=== PATIENT | male | born 1970 | race Caucasian/White ===

== ENCOUNTER 2016-09-03 05:37 | Day surgery (SDC) | payer BC ==
[2016-08-28 16:22] VITALS: BMI 23.5
--- NOTE | 2016-09-03 09:23 | HP ---
Satellite [facility] - Chief Complaint Chief Complaint: left knee pain - Past Medical History Allergies/Adverse Reactions: Allergies Allergy/AdvReac Type Severity Reaction Status Date / Time No Known Allergies Allergy Verified 08/28/16 16:22 - Current Medications Current Medications: Home Medications Medication Instructions Recorded Amoxicillin/Potassium Clav 875 mg PO BID 08/28/16 [Amox-Clav 875-125 mg Tablet] Losartan Potassium 25 mg PO DAILY 08/28/16 Pantoprazole Sodium 40 mg PO HS 08/28/16 Oxycodone HCl/Acetaminophen 1 - 2 tab PO Q6H #50 tab MDD 8 09/03/16 [Percocet 5-325 mg Tablet -] Satellite Physical Exam - Physical Examination General Appearance: Well Nourished, Well Developed, Alert & Oriented x3 ENT: Clear Lung: Normal air movement Heart: Regular rate & rhythm Extremities: Other (left knee- + swelling, + ttp, decr rom, + mcmurrays, + apleys, nvi MRi + LMT) Neurological: Intact, Alert, Oriented Satellite Impression/Plan - Impression/Plan Impression: left knee internal derangement Operative Procedure: left knee arthroscopy Date to be Performed: 09/03/16
[2016-09-03] MEDS ORDERED: LIDOCAINE 1%/EPI 1:100000 (50 ML MULTI DOSE VIAL) ONE (11:59)
[2016-09-03] MEDS ORDERED: BUPIVACAINE HCL/PF 0.5% (5MG/ML) 10 ML VIAL ONE (12:00)
[2016-09-03] MEDS ORDERED: MIDAZOLAM HCL 2 MG/2 ML SINGLE DOSE VIAL ONE (12:19)
[2016-09-03] MEDS ORDERED: PROPOFOL 20 ML ONE (12:19)
[2016-09-03] MEDS ORDERED: KETOROLAC TROMETHAMINE 30 MG/1 ML VIAL ONE (12:42)
[2016-09-03] MEDS ORDERED: DEXAMETHASONE SOD PHOSPHATE 4 MG/1 ML VIAL ONE (12:42)
--- NOTE | 2016-09-03 12:47 | OP ---
Operative Note - Note: Operative Date: 09/03/16 ([facility]) Pre-Operative Diagnosis: left knee internal derangement Operation: left knee arthroscopy with PLM Post-Operative Diagnosis: Same as Pre-op Surgeon: Alejandro Cali Anesthesiologist/EDUCATION PROGRAM ASSOCIATE: Vincent Armas Anesthesia: General, Local Specimens Removed: shavings Estimated Blood Loss (mls): 5 Operative Report Dictated: Yes
[2016-09-03] MEDS ORDERED: LIDOCAINE 1%/EPI 1:100000 (20 ML MULTI DOSE VIAL) INF ONE ×2 (12:48)
[2016-09-03] MEDS ORDERED: BUPIVACAINE HCL/PF 0.5% (5MG/ML) 10 ML VIAL IJ ONE ×2 (12:48→12:49)
[2016-09-03] MEDS ORDERED: oxyCODONE HCL 5 MG TABLET PO PRN (13:10)
[2016-09-03] MEDS ORDERED: ONDANSETRON 4 MG/2 ML VIAL IVPUSH PRN (13:10)
[2016-09-03] MEDS ORDERED: LACTATED RINGERS SOLUTION 1,000 ML IV SCH (13:15)
[2016-09-03 15:14] VITALS: TEMP 97.7
[2016-09-03 16:20] VITALS: BP 132/68; PULSE 92
--- NOTE | 2016-09-04 13:44 | OP ---
DATE OF OPERATION: 09/03/2016 PREOPERATIVE DIAGNOSIS: Left lateral meniscus tear. POSTOPERATIVE DIAGNOSIS: Left lateral meniscus tear. PROCEDURE: Arthroscopy, left knee, with partial lateral meniscectomy. SURGICAL ATTENDING: Alejandro Cali MD ANESTHESIA: General with LMA. CLOSURE: Nylon 4-0. COMPLICATIONS: None. CONDITION: To recovery room in stable condition. DESCRIPTION OF OPERATIVE PROCEDURE: Patient taken to the operating room on September 03, 2016. General anesthesia with LMA was administered by the anesthesiologist. The left lower extremity was prepped and draped in the usual sterile fashion. Superolateral, mediolateral, and infrapatellar portal sites were infiltrated with 1% Xylocaine with epinephrine. Superolateral portal was made with 15-blade followed by blunt trocar. The knee was aspirated and inflated with a cocktail of 10 mL of 1% Xylocaine, 10 mL 0.5% Marcaine, and 20 mL of arthroscopic saline. Mediolateral and infrapatellar portals were then made with a 15 blade followed by blunt trocar. The scope was placed in the lateral infrapatellar portal and up into the suprapatellar pouch. The pouch was visualized to be clean. Medial and lateral gutters were visualized to be clean. The undersurface of the patella and trochlea were visualized and appeared to be intact. With valgus stress on the knee, the medial compartment was entered. Medial meniscus visualized and probed, found to be intact. Medial femoral condyle was run, found to be intact as was the medial tibial plateau. At 90 degrees, the ACL was visualized, probed, found to be intact. In the figure 4 position, lateral compartment was entered. Lateral meniscus was found to have a large radial tear of its midportion. This was balanced back to smooth and stable meniscal tissue both anteriorly and posteriorly using a meniscal biter and an arthroscopic shaver. The lateral femoral condyle was run and found to be intact as was the lateral tibial plateau. The knee was irrigated with copious amounts of irrigation. Portals were closed with 4-0 nylon. Prior to closure, 20 ml of 0.5% Marcaine was infused through the outflow portal prior to pulling out the trocar. A sterile pressure dressing was placed over the knee. Patient awakened from anesthesia and transferred to recovery in stable condition. No complications. Estimated blood loss negligible. Muriel [id number]
--- NOTE | 2016-09-04 16:51 | PATH ---
Surgical Pathology Report Patient Name: HEMAL PALOMINO [facility]. Rec. #: [id number] /Age/Gender: 1970 (Age: 46) / M Account: [id number] Location: [facility] SURGICAL Taken: 09/03/2016 Received: 09/03/2016 Reported: 09/04/2016 Physicians: Alejandro Cali M.D. Specimen(s) Received LEFT KNEE SHAVINGS Clinical History Medial meniscus tear left knee Final Diagnosis KNEE, LEFT, ARTHROSCOPIC SHAVING: FIBROCARTILAGE WITH MYXOID DEGENERATIVE CHANGES, ALONG WITH PORTIONS OF SYNOVIUM. Electronically Signed Boone James M.D. Gross Description Received in formalin, labeled "left knee shavings," is a 2.5 x 2.5 x 0.3 cm. aggregate of mccarthy-yellow soft tissue fragments. A packaging sales representative portion is submitted in one cassette. /09/03/201609/03/2016
== END 2016-09-03 15:45 | disposition home or self-care (01) ==
LOC: JASU-SURG 05:37
PROVIDERS: ATTEND Orthopaedic Surgery
PROC: 0SBD4ZZ Excision of Left Knee Joint, Percutaneous Endoscopic Approach (ICD-10-PCS; principal; 2016-09-03 11:00)
DX: M23.201 Derangement of unspecified lateral meniscus due to old tear or injury, left knee (principal)
CPT/HCPCS: 88304-TC; 94760

== ENCOUNTER 2022-09-27 20:19 | Emergency (ER) | payer BC ==
[2022-09-27 20:43] VITALS: BP 137/83; PULSE 87; RESP 16; TEMP 99.1; BMI 24.3
[2022-09-27] MEDS ORDERED: KETOROLAC TROMETHAMINE 60 MG/2 ML VIAL IM ONE (22:22)
[2022-09-27] MEDS ORDERED: KETOROLAC TROMETHAMINE 60 MG/2 ML VIAL ONE (22:24)
[2022-09-27] MEDS ORDERED: CYCLOBENZAPRINE HCL 10 MG TABLET (FP) PO ONE (23:09)
[2022-09-27] MEDS ORDERED: CYCLOBENZAPRINE HCL 5 MG TABLET ONE (23:14)
== END 2022-09-27 23:28 | disposition home or self-care (01) ==
LOC: FER 20:19
PROC: 3E0233Z Introduction of Anti-inflammatory into Muscle, Percutaneous Approach (ICD-10-PCS; principal; 2022-09-27)
DX: M62.838 Other muscle spasm (principal)
CPT/HCPCS: 72050-TC-FY; 99284-25